=== PATIENT | female | born 1980 | race Caucasian/White ===

== ENCOUNTER 2021-01-12 00:55 | Inpatient (IN) | payer OTHER ==
[~2021-01-12] VITALS: Ht 160 cm; Wt 75.5 kg
[~2021-01-12 00:55] MED LIST: CALC300T5 PO; IBUP-1222 PO; OXYC1TAB14 PO; PREN1TAB28 PO
[2021-01-12] MEDS ORDERED: NEWBORN KIT ONE (02:13)
[2021-01-12] MEDS ORDERED: LACTATED RINGERS 1,000 ML IV SCH (02:30)
[2021-01-12] MEDS ORDERED: PLEASE ENTER HEIGHT AND WEIGHT MC SCH (02:30)
[2021-01-12] MEDS ORDERED: FENTANYL PF 100 MCG/2ML IV PRN (02:30)
[2021-01-12] MEDS ORDERED: CALCIUM CARBONATE 500 MG TAB.CHEW PO PRN ×2 (02:30→10:30)
[2021-01-12] MEDS ORDERED: FENTANYL PF 100 MCG/2ML IVPush PRN (02:30)
[2021-01-12] MEDS ORDERED: OXYTOCIN 30U/ 0.9% NaCL 500ML 500 ML IV ONE (02:30)
[2021-01-12] MEDS ORDERED: TERBUTALINE 1 MG/ML, 1ML IVPush PRN (02:30)
[2021-01-12] MEDS ORDERED: TERBUTALINE 1 MG/ML, 1ML SQ PRN (02:30)
[2021-01-12] MEDS ORDERED: ONDANSETRON 2MG/ML, 2ML IVPush PRN (02:30)
[2021-01-12] MEDS ORDERED: D5%-LACTATED RINGERS 1,000 ML IV SCH (02:30)
[2021-01-12 02:36] LABS: BASOPHILS % (AUTO) 1 % (0-1); EOSINOPHILS % (AUTO) 1 % (1-7); LYMPHOCYTES % (AUTO) 26 % (22-44); MEAN CORPUSCULAR HEMOGLOBIN 30.8 pg (27.0-34.8); MEAN CORPUSCULAR HGB CONC 34.5 g/dL (32.4-35.8); MONOCYTES % (AUTO) 6 % (2-9); NEUTROPHILS % (AUTO) 66 % (42-75); PLATELET COUNT 176 x10^3/uL (130-400); RED BLOOD COUNT 3.82 x10^6/uL (3.82-5.3); RED CELL DISTRIBUTION WIDTH 13.3 % (9.6-15.2)
[2021-01-12 02:38] LABS: MD NO
[2021-01-12] MEDS ORDERED: BUPIVACAINE 0.25% ONE (02:43)
[2021-01-12] MEDS ORDERED: FENTANYL/BUPIV./NS/PF 250 ML EPIDCONT ONE (02:43)
[2021-01-12] MEDS ORDERED: EPHEDRINE 50 MG/ML, 1ML IVPush PRN (03:30)
[2021-01-12] MEDS ORDERED: LACTATED RINGERS 1,000 ML IVBOLUS PRN (03:30)
[2021-01-12] MEDS ORDERED: FENTANYL/BUPIV./NS/PF 250 ML EPIDCONT SCH (03:30)
[2021-01-12] MEDS ORDERED: LIDOCAINE 1%, 20ML ONE (04:26)
[2021-01-12] MEDS ORDERED: MISOPROSTOL 200 MCG TABLET ONE (04:27)
[2021-01-12] MEDS ORDERED: OXYTOCIN 30U/ 0.9% NaCL 500ML 500 ML IV PRN (04:30)
[2021-01-12] MEDS ORDERED: SIMETHICONE 80 MG CHEW TAB PO PRN (10:30)
[2021-01-12] MEDS ORDERED: HYDROcodone/APAP 5/325 TABLET PO PRN (10:30)
[2021-01-12] MEDS ORDERED: ACETAMINOPHEN 325 MG TABLET PO PRN (10:30)
[2021-01-12] MEDS ORDERED: OXYTOCIN 30U/ 0.9% NaCL 500ML 500 ML IV SCH (10:30)
[2021-01-12] MEDS ORDERED: ONDANSETRON 2MG/ML, 2ML IV PRN (10:30)
[2021-01-12] MEDS ORDERED: MISOPROSTOL 200 MCG TABLET PR PRN (10:30)
[2021-01-12] MEDS: OXYTOCIN 30U/ 0.9% NaCL 500ML 500 ML IV SCH ×2 (11:24→20:30)
[2021-01-12] MEDS: IBUPROFEN 600 MG TABLET PO PRN ×2 (11:24→18:11)
[2021-01-12 11:50] VITALS: BP 106/64
[2021-01-12] MEDS: HYDROcodone/APAP 5/325 TABLET PO PRN ×3 (14:16→22:33)
[2021-01-12 16:31] VITALS: BP 102/65
[2021-01-12] MEDS: LACTATED RINGERS 1,000 ML IV SCH (19:30)
[2021-01-12] MEDS: DOCUSATE 100 MG CAPSULE PO SCH (20:05)
[2021-01-12 20:10] VITALS: BP 104/65
[2021-01-12 20:56] LABS: BASOPHILS % (AUTO) 0 % (0-1); EOSINOPHILS % (AUTO) 0 % (1-7); LYMPHOCYTES % (AUTO) 18 % (22-44); MEAN CORPUSCULAR HEMOGLOBIN 30.4 pg (27.0-34.8); MEAN CORPUSCULAR HGB CONC 33.9 g/dL (32.4-35.8); MONOCYTES % (AUTO) 5 % (2-9); NEUTROPHILS % (AUTO) 77 % (42-75); PLATELET COUNT 160 x10^3/uL (130-400); RED BLOOD COUNT 2.89 x10^6/uL (3.82-5.3); RED CELL DISTRIBUTION WIDTH 13.1 % (9.6-15.2)
[2021-01-12 21:02] LABS: MD NO
[2021-01-13 00:17] VITALS: BP 118/73
[2021-01-13] MEDS: IBUPROFEN 600 MG TABLET PO PRN ×2 (03:17→10:28)
[2021-01-13] MEDS: HYDROcodone/APAP 5/325 TABLET PO PRN ×2 (03:18→08:03)
[2021-01-13] MEDS: LACTATED RINGERS 1,000 ML IV SCH (03:37)
[2021-01-13 04:27] VITALS: BP 100/59
[2021-01-13] MEDS: OXYTOCIN 30U/ 0.9% NaCL 500ML 500 ML IV SCH (06:30)
[2021-01-13 07:50] VITALS: BP 97/56
[2021-01-13] MEDS ORDERED: FERROUS GLUCONATE 324 MG TABLET PO SCH (08:00)
[2021-01-13] MEDS: DOCUSATE 100 MG CAPSULE PO SCH (08:03)
[2021-01-13] MEDS ORDERED: FERR270T PO (08:17)
[2021-01-13] MEDS ORDERED: HYDR-2214 PO (08:18)
[2021-01-13] MEDS ORDERED: DOCU-131 PO (08:18)
[2021-01-13] MEDS ORDERED: IBUP-1222 PO (08:19)
[2021-01-13] MEDS ORDERED: PRENATAL VIT/IRON/FA 1 EACH TABLET PO SCH (09:00)
== END 2021-01-13 10:35 | disposition home or self-care (01) | DRG 768 ==
LOC: LDOP 00:55 → LDIP 02:12 → 2NW 11:56
PROVIDERS: ADMIT Obstetrics & Gynecology; ATTEND Obstetrics & Gynecology
PROC: 10E0XZZ Delivery of Products of Conception, External Approach (ICD-10-PCS; principal; 2021-01-12)
PROC: 0DQP0ZZ Repair Rectum, Open Approach (ICD-10-PCS; 2021-01-12)
DX: O66.0 Obstructed labor due to shoulder dystocia (principal); Z37.0 Single live birth; O70.3 Fourth degree perineal laceration during delivery; O26.873 Cervical shortening, third trimester; O69.1XX0 Labor and delivery complicated by cord around neck, with compression, not applicable or unspecified; O71.82 Other specified trauma to perineum and vulva; Z3A.38 38 weeks gestation of pregnancy; Z20.822 Contact with and (suspected) exposure to COVID-19
CPT/HCPCS: 36415; 84112; 85025; 86592; 86780; 86850; 86870; 86900; 86922; 86923; 87635; G0378; J2590; J7120